=== PATIENT | female | born 1995 | race Caucasian/White ===

== ENCOUNTER 2018-09-27 00:08 | Emergency (ER) | payer SELFPAY ==
[2018-09-27 01:46] LABS: BASO # 0.1 (0.02-0.10); EOS # 0.1 (0.04-0.40); EOS % 1.1 % (1.0-5.0); HEMATOCRIT 38.7 % (37.0-47.0); HEMOGLOBIN 12.8 g/dL (12.5-16.0); MEAN CELL VOLUME 99 fl (78-100); MEAN CORPUSCULAR HEMOGLOBIN 33 pg (27-31); MEAN CORPUSCULAR HGB CONC 33 g/dL (33-37); MEAN PLATELET VOLUME 10.7 fl (7.4-10.4); MONO # 0.4 (0.20-0.80); NEU # 3.9 (1.40-6.50); PLATELET COUNT 152 K/mm3 (130-400); RED BLOOD COUNT 3.92 M/mm3 (4.10-5.30); RED CELL DISTRIBUTION WIDTH 12.8 % (11.5-14.5); WHITE BLOOD COUNT 7.5 K/mm3 (4.8-10.8)
[2018-09-27 01:54] LABS: ACETAMINOPHEN 70 ug/mL (10-30); ALBUMIN 4.1 g/dL (3.5-5.0); ALCOHOL IN-HOUSE < 10 mg/dL; ALT/SGPT 26 U/L (9-52); AST-SGOT 21 U/L (14-36); CALCIUM 9.1 mg/dL (8.4-10.2); CARBON DIOXIDE 26 mmol/L (22-30); GLUCOSE 91 mg/dL (65-105); POTASSIUM 3.8 mmol/L (3.6-5.0); SODIUM 139 mmol/L (137-145); TOTAL BILIRUBIN 0.3 mg/dL (0.2-1.3); TOTAL PROTEIN 6.8 g/dL (6.3-8.2)
[2018-09-27 06:10] VITALS: BP 97/61
== END 2018-09-27 06:10 | disposition home or self-care (01) ==
LOC: ED 00:08
PROVIDERS: Nurse Practitioner
DX: T39.1X2A Poisoning by 4-Aminophenol derivatives, intentional self-harm, initial encounter (principal); F39 Unspecified mood [affective] disorder; F17.210 Nicotine dependence, cigarettes, uncomplicated

== ENCOUNTER 2020-09-08 03:36 | Emergency (ER) | payer MEDICAID ==
[2020-09-08 04:44] LABS: HEMATOCRIT 40.2 % (37.0-47.0); HEMOGLOBIN 13.2 g/dL (12.5-16.0); LYMPH# 1.8 (1.50-4.00); MEAN CELL VOLUME 97 fl (78-100); MEAN CORPUSCULAR HEMOGLOBIN 32 pg (27-31); MEAN CORPUSCULAR HGB CONC 33 g/dL (33-37); MEAN PLATELET VOLUME 10.2 fl (7.4-10.4); MONO # 0.5 (0.20-0.80); NEU # 6.7 (1.40-6.50); PLATELET COUNT 217 K/mm3 (130-400); RED BLOOD COUNT 4.14 M/mm3 (4.10-5.30); RED CELL DISTRIBUTION WIDTH 13.1 % (11.5-14.5); WHITE BLOOD COUNT 9.1 K/mm3 (4.8-10.8)
[2020-09-08 04:51] LABS: POTASSIUM 3.3 mmol/L (3.5-5.1); SODIUM 140 mmol/L (136-145)
[2020-09-08 04:54] LABS: CARBON DIOXIDE 18 mmol/L (22-29)
[2020-09-08 04:55] LABS: TOTAL BILIRUBIN 0.5 mg/dL (0.2-1.2)
[2020-09-08 04:58] LABS: AST-SGOT 15 U/L (5-34)
[2020-09-08 05:05] LABS: ALBUMIN 4.4 g/dL (3.5-5.0)
[2020-09-08 05:08] LABS: GLUCOSE 121 mg/dL (65-105); TOTAL PROTEIN 6.8 g/dL (6.4-8.3)
[2020-09-08 05:15] LABS: ALT/SGPT 13 U/L (0-55)
[2020-09-08 05:16] LABS: ACETAMINOPHEN < 1 ug/mL; ALCOHOL IN-HOUSE < 10 mg/dL (<10)
[2020-09-08 11:09] VITALS: BP 96/48
== END 2020-09-08 11:36 | disposition home or self-care (01) ==
LOC: ED 03:36
PROVIDERS: Family Medicine
DX: T39.312A Poisoning by propionic acid derivatives, intentional self-harm, initial encounter (principal); T36.4X2A Poisoning by tetracyclines, intentional self-harm, initial encounter; F17.210 Nicotine dependence, cigarettes, uncomplicated
CPT/HCPCS: J2405; J3490; J7030